=== PATIENT | male | born 1980 | race Two or more races ===

== ENCOUNTER → 2020-01-06 | Outpatient (CLI) | payer OTHER ==
[~2020-01-06] MED LIST: IOHEXOL 300 MG/ML 100ML BOTTLE IJ ONE
[2020-01-06 10:48] LABS: Calcium 9.3 mg/dL (8.5-10.1); Potassium 3.9 mmol/L (3.5-5.1)
[2020-01-06 10:51] LABS: BUN/Creatinine Ratio 5.3
== END | disposition home or self-care (01) ==
LOC: CT 09:58
DX: R22.1 Localized swelling, mass and lump, neck (principal)
CPT/HCPCS: 36415; 70491; 80048; Q9967